=== PATIENT | male | born 1980 | race Caucasian/White ===

== ENCOUNTER 2018-02-14 13:30 | Emergency (ER) | payer OTHER ==
[2018-02-14] MEDS ORDERED: DIPHTH,PERTUSS(ACELL),TET 0.5 ML DISP.SYRIN IM ONE (13:39)
--- NOTE | 2018-02-14 13:39 | PDOC ---
History of Present Illness - General Chief Complaint: Laceration Stated Complaint: LEFT 4TH FINGER LACERATION Time Seen by Provider: 02/14/18 13:39 History Source: Patient Exam Limitations: No Limitations - History of Present Illness Initial Comments: 02/14/18 13:39 Mr. Abebe is an otherwise healthy 37-year-old [id number] male who presents emergency department status post laceration to the left ring finger. Patient states he was cutting frozen meats when he was accidentally cut with his knife. No glass involved. Patient noticed some numbness to the medial portion of the finger immediately after this happened. Noticed bleeding. Patient had a vasovagal episode after cutting himself. Unsure about his tetanus status PMH: Denies PSH: denies Meds: denies ALL: NKDA Social: No IVDU FH: GENERAL/CONSTITUTIONAL: No: fever, chills, weakness, loss of appetite. HEAD, EYES, EARS, NOSE AND THROAT: No: change in vision, ear pain, discharge, sore throat, throat swelling. CARDIOVASCULAR: Yes: vasovagal episode No: chest pain, lightheadedness, palpitations, syncope RESPIRATORY: No: cough, shortness of breath, wheezing, hemoptysis, stridor. GASTROINTESTINAL: No: nausea, vomiting, diarrhea, abdominal pain GENITOURINARY: No: dysuria, hematuria, frequency, urgency, flank pain. MUSCULOSKELETAL: No: back pain, neck pain, joint pain, muscle swelling or pain SKIN: Yes: laceration No: lesions, pallor, rash or easy bruising. NEUROLOGIC: Yes: numbness of medial finger No: headache, vertigo, paresthesias, weakness GENERAL: The patient is in no acute distress. HEAD: Normal with no signs of trauma. EYES: PERRLA, EOMI, sclera anicteric, conjunctiva clear. ENT: Ears normal, nares patent, oropharynx clear without exudates. Moist mucous membranes. NECK: Normal range of motion, supple LUNGS: Breath sounds equal, clear to auscultation bilaterally. No wheezes, and no crackles. HEART:Regular rate and rhythm, normal S1 and S2 without murmur, rub or gallop. ABDOMEN: Soft, nontender, normoactive bowel sounds. EXTREMITIES: Normal range of motion, no edema. No clubbing or cyanosis. No erythema, or tenderness. NEUROLOGICAL: Cranial nerves II through XII grossly intact. Normal speech. No focal neurological deficits. numbness medial side of finger R/M/U motor and sensation intact MUSCULOSKELETAL: Back non-tender to palpation, no CVA tenderness SKIN: V shaped 1.5 cm laceration, (+) bleeding 02/14/18 14:01 02/17/18 07:37 Past History - Past Medical History Allergies/Adverse Reactions: Allergies Allergy/AdvReac Type Severity Reaction Status Date / Time No Known Allergies Allergy Verified 02/14/18 13:31 Home Medications: Ambulatory Orders Cephalexin [Keflex] 500 mg PO Q6H #20 capsule 02/14/18 Procedures - Laceration/Wound Repair Left Volar Finger Wound Length: to 2.5 cm Wound Explored: clean Wound's Depth, Shape: superficial, linear Irrigated w/ Saline: Yes Betadine Prep: No (Chlorhexidine) Anesthesia: 1% Lidocaine Amount of Anesthetic (ccs): 2 Wound Debrided: minimal Wound Repaired With: Sutures Suture Size/Type: 4:0 Number of Sutures: 4 Layer Closure: No Sterile Dressing Applied: Yes Medical Decision Making - Medical Decision Making 02/14/18 14:04 37-year-old male presents emergency department status post laceration to the left ring finger. No foreign bodies seen. Wound is was irrigated. Tetanus times a day, Boostrix given in the emergency department. Discharge to home with Keflex. Will ask patient to follow up for suture removal in approximately 10 days. Patient demonstrates no motor deficits, does have some numbness immediately on the distal portion of the finger. Patient has a follow-up with plastics for this. Clinical impression: Laceration to the finger, initial presentation *DC/Admit/Observation/Transfer Diagnosis at time of Disposition: Laceration of finger of left hand Qualifiers: Encounter type: initial encounter Finger: ring finger Damage to nail status: without damage Foreign body presence: without foreign body Qualified Code(s): S61.215A - Laceration without foreign body of left ring finger without damage to nail, initial encounter - Discharge Dispostion Disposition: HOME Condition at time of disposition: Stable Decision to Admit order: No - Prescriptions Prescriptions: Cephalexin [Keflex] 500 mg PO Q6H #20 capsule - Referrals Referrals: Lalit Navarrete [Primary Care Provider] - Sven Metzger MD [Staff Physician] - - Patient Instructions Printed Discharge Instructions: DI for Laceration Repair Additional Instructions: Thank you for coming in to the ER today Suture Care for a normal sutured wound: o Don't get wet for 24 hours. o After 24 hours wash with celina soap and water o Apply bacitracin or any antibiotic ointment after washing. o Change wound dressing when wet or soiled. o A dressing is no longer needed when edge of wound closed (usually 48 hours). EXCEPTION: dressing needed to prevent sutures from catching on clothing. Return to your primary care physician, urgent care or the ER for suture removal in 10 days Return to the ER if you notice your skin is warm, hot, if you have drainage, severe pain - Post Discharge Activity Forms/Work/School Notes: Back to Work
[2018-02-14 14:07] VITALS: BP 118/76; PULSE 77; TEMP 98.1; BMI 27.3
== END 2018-02-14 14:17 | disposition home or self-care (01) ==
LOC: FER 13:30
PROC: 0HQGXZZ Repair Left Hand Skin, External Approach (ICD-10-PCS; principal; 2018-02-14)
PROC: 3E0234Z Introduction of Serum, Toxoid and Vaccine into Muscle, Percutaneous Approach (ICD-10-PCS; 2018-02-14)
DX: S61.215A Laceration without foreign body of left ring finger without damage to nail, initial encounter (principal); W26.0XXA Contact with knife, initial encounter; Y93.G1 Activity, food preparation and clean up; Y92.9 Unspecified place or not applicable
CPT/HCPCS: 90715; 99284-25